=== PATIENT | female | born 1970 | race American Indian/Alaskan Native ===

== ENCOUNTER 2017-08-02 13:37 | Outpatient (CLI) | payer BC ==
--- NOTE | 2017-08-03 07:52 | Cat Scan Report ---
CT ABDOMEN PELVIS WITH AND WITHOUT CONTRAST: HISTORY: Left flank pain. COMPARISON: none. TECHNIQUE: Helical CT in 1.25mm intervals before and after IV contrast. Sagittal and coronal reconstructions. FINDINGS: Lung bases: Normal. Liver: Normal. Biliary system: Normal. Pancreas: Normal. Spleen: Normal. Kidneys/ureters/bladder: Both kidneys are normal size, contour and position. The renal pyramids are slightly hyperdense bilaterally consistent with nephrocalcinosis. A 4 mm calyceal stone is identified at the inferior pole of the left kidney. No associated hydronephrosis. There also appeared to be 1 or 2 punctate calyceal stones at the inferior pole of the right kidney. There is a normal enhancement pattern in both kidneys following IV contrast. Millimetric cortical cyst at the inferior pole of the right kidney is noted. The ureters are normal course and caliber. No ureteral stones are identified. Normal bladder. There are multiple vascular coils within the bilateral ovarian veins which generates significant artifact. Adrenal glands: Normal. Aorta: Normal. Intestines: Within normal limits no oral contrast was administered. Appendix: Not confidently identified, correlate with surgical history. Pelvic viscera: The uterus and ovaries are unremarkable. Ascites: Trace/physiologic fluid in the cul-de-sac. No abscess. Adenopathy: None. Musculoskeletal: Normal. IMPRESSION: There is evidence for nephrocalcinosis in both kidneys. Tiny nonobstructing calyceal stones are suspected bilaterally as outlined above. No hydronephrosis. Previous bilateral ovarian vein ligation/coiling is suspected.
== END 2017-08-02 13:38 | disposition home or self-care (01) ==
LOC: CT 13:37
PROVIDERS: ATTEND Radiology Diagnostic Radiology
DX: E83.59 Other disorders of calcium metabolism (principal); N29 Other disorders of kidney and ureter in diseases classified elsewhere; N94.89 Other specified conditions associated with female genital organs and menstrual cycle; N94.19 Other specified dyspareunia; I87.2 Venous insufficiency (chronic) (peripheral); I87.1 Compression of vein
CPT/HCPCS: 74178; Q9967